=== PATIENT | female | born 1975 | race African-American/Black ===

== ENCOUNTER 2019-12-14 12:52 | Emergency (ER) | payer BC ==
[2019-12-14 13:08] VITALS: BP 142/83; PULSE 74; TEMP 98.4; BMI 30.7
[2019-12-14] MEDS ORDERED: ACETAMINOPHEN 325 MG TABLET (FP) PO ONE (13:47)
[2019-12-14] MEDS ORDERED: LIDOCAINE 5% TOPICAL PATCH TP ONE (13:48)
[2019-12-14] MEDS ORDERED: METOCLOPRAMIDE HCL 10 MG TABLET (FP) PO ONE ×2 (13:49→14:00)
[2019-12-14] MEDS ORDERED: ACETAMINOPHEN 325 MG TABLET (FP) ONE (13:59)
[2019-12-14] MEDS ORDERED: LIDOCAINE 5% TOPICAL PATCH ONE (14:00)
--- NOTE | 2019-12-14 15:36 | PDOC ---
History of Present Illness - General Chief Complaint: Headache Stated Complaint: HEAD INJURY Time Seen by Provider: 12/14/19 13:15 History Source: Patient Exam Limitations: No Limitations Past History - Travel History Traveled outside of the country in the last 30 days: No Close contact w/someone who was outside of country & ill: No - Medical History Allergies/Adverse Reactions: Allergies Allergy/AdvReac Type Severity Reaction Status Date / Time metronidazole [From Flagyl] Allergy Intermediate Hives Verified 12/14/19 13:03 Home Medications: Ambulatory Orders Cyclobenzaprine HCl [Flexeril -] 10 mg PO HS #10 tablet 12/14/19 Ibuprofen 600 mg PO Q6H #30 tablet 12/14/19 Metoclopramide HCl [Reglan -] 10 mg PO TID PRN #21 tablet 12/14/19 COPD: No - Reproductive History Is Patient Now?: No - Psycho-Social/Smoking History Smoking History: Never smoked Have you smoked in the past 12 months: No - Substance Abuse Hx (Audit-C & DAST Scrn) How often the patient has a drink containing alcohol: Never Score: In Men: 4 or > Positive; In Women: 3 or > Positive: 0 Screen Result (Pos requires Nsg. Audit-10AR): Negative In the last yr the pt used illegal drug/Rx for NonMed reason: No Score: Yes response is considered Positive: 0 Screen Result (Positive result requires Nsg. DAST-10): Negative Review of Systems - Review of Systems Able to Perform ROS?: Yes Comments:: 12/14/19 15:22 CONSTITUTIONAL: Absent: fever, chills, diaphoresis, generalized weakness, malaise, loss of appetite HEENT: Absent: rhinorrhea, nasal congestion, throat pain, throat swelling, difficulty swallowing, mouth swelling, ear pain, eye pain, visual Changes CARDIOVASCULAR: Absent: chest pain, loss of consciousness, palpitations, irregular heart rate, peripheral edema RESPIRATORY: Absent: cough, shortness of breath, dyspnea with exertion, orthopnea, wheezing, stridor, hemoptysis GASTROINTESTINAL: Absent: abdominal pain, abdominal distension, nausea, vomiting, diarrhea, constipation, melena, hematochezia GENITOURINARY: Absent: dysuria, frequency, urgency, hesitancy, hematuria, flank pain, genital pain MUSCULOSKELETAL: Present: Neck pain Absent: myalgia, arthralgia, joint swelling SKIN: Absent: rash, itching, pallor HEMATOLOGIC/IMMUNOLOGIC: Absent: easy bleeding, easy bruising, lymphadenopathy, frequent infections ENDOCRINE: Absent: unexplained weight gain, unexplained weight loss, heat intolerance, cold intolerance NEUROLOGIC: Present: headache Absent: focal weakness or paresthesias, dizziness, unsteady gait, seizure, mental status changes, bladder or bowel incontinence PSYCHIATRIC: Absent: anxiety, depression, suicidal or homicidal ideation, hallucinations. Is the patient limited Faroese proficient: No *Physical Exam - Vital Signs Last Vital Signs Temp Pulse Resp BP Pulse Ox 98.4 F 74 18 142/83 100 12/14/19 13:03 12/14/19 13:03 12/14/19 13:03 12/14/19 13:03 12/14/19 13:03 - Physical Exam 12/14/19 15:58 GENERAL: Well developed, well nourished. Awake and alert. No acute distress. HEENT: Normocephalic, atraumatic. PERRLA, EOMI. No conjunctival pallor. Sclera are non- icteric. Moist mucous membranes. NECK: Supple. Full ROM. No lymphadenopathy. Tenderness palpation of the cervical spine C5-C7 with palpable spasm. No midline tenderness CARDIOVASCULAR: Regular rate and rhythm. No murmurs, rubs, or gallops. Distal pulses are 2+ and symmetric. PULMONARY: No evidence of respiratory distress. Lungs clear to auscultation bilaterally. No wheezing, rales or rhonchi. ABDOMINAL: Soft. Non-tender. Non-distended. No rebound or guarding. No organomegaly. MUSCULOSKELETAL Normal range of motion at all joints. No bony deformities or tenderness. No CVA tenderness. EXTREMITIES: No cyanosis. No clubbing. No edema. No calf tenderness. SKIN: Warm and dry. Normal capillary refill. No rashes. No jaundice. NEUROLOGICAL: Alert, awake, appropriate. Cranial nerves 2-12 intact. No deficits to light touch and temperature in face, upper extremities and lower extremities. No motor deficits in the in face, upper extremities and lower extremities. Normoreflexic in the upper and lower extremities. Normal speech. Toes are down-going bilaterally. Gait is normal without ataxia. PSYCHIATRIC: Cooperative. Good eye contact. Appropriate mood and affect. ED Treatment Course - RADIOLOGY Radiology Studies Ordered: Category Date Time Status FACIAL BONES CT W/O CONTRAST [CT] Stat CT Scan 12/14/19 13:[address] WITHOUT CONTRAST [CT] Stat CT Scan 12/14/19 13:41 Taken SPINE-CERVICAL (2-3VIEWS) [RAD] Stat Radiology 12/14/19 13:45 Completed - Medications Given in the ED: ED Medications Discontinued Medications Generic Name Dose Route Start Last Admin Trade Name Bharath PRN Reason Stop Dose Admin Acetaminophen 1,000 mg 12/14/19 13:47 12/14/19 14:08 Tylenol - PO 12/14/19 13:48 1,000 mg ONCE ONE Administration Lidocaine 1 patch 12/14/19 13:48 12/14/19 14:08 Lidoderm Patch - TP 12/14/19 13:49 1 patch ONCE ONE Administration Metoclopramide HCl 10 mg 12/14/19 13:49 12/14/19 14:09 Reglan - PO 12/14/19 13:50 10 mg ONCE ONE Administration Medical Decision Making - Medical Decision Making 12/14/19 15:40 The patient is a 44-year-old female with past medical history of TBI, presents to the ER today with headache and neck pain for 1 week. She states that she was playing with her childress retriever when he jumped off the couch into her neck. She states that the pain significant got worse over the past week. She states she feels like her neck is tight admits to causing her headache. She also notes she has some swelling to her lower eye. Denies fevers, chills, meningismal signs, loss of consciousness and dizziness. A/P: Neck pain, headache On exam patient is right-sided paraspinous muscle tenderness of the cervical spine. Neurologically patient is intact. Minimal swelling to the right lower eyelid. Some pain with extraocular movements. Head CT, facial bone CT and neck x-ray ordered No orbital fractures, no acute head trauma, bleed or fracture X-ray of the C-spine shows reversal curvature consistent with spasm We will treat as an outpatient with ibuprofen and Flexeril Will refer back to PCP I discussed the physical exam findings, ancillary test results and final diagnoses with the patient. I answered all of the patient's questions. The patient was satisfied with the care received and felt comfortable with the discharge plan and treatment plan. The Patient agrees to follow up with the primary care physician/specialist within 24-72 hours. Return precautions were given. Discharge - Discharge Information Problems reviewed: Yes Clinical Impression/Diagnosis: Neck muscle spasm Headache Qualifiers: Headache type: unspecified Headache chronicity pattern: acute headache Intractability: not intractable Qualified Code(s): R51.9 - Headache, unspecified Condition: Stable Disposition: HOME - Admission No - Follow up/Referral Referrals: Zak Jha MD [Staff Physician] - - Patient Discharge Instructions Patient Printed Discharge Instructions: DI for Whiplash, DI for Headache Additional Instructions: You were seen for your injuries after getting run into by your dog Your head CT and facial bone CT was normal Your cervical spine x-ray showed a muscle spasm Please take ibuprofen and Flexeril as directed. Do not drink or drive after taking the Flexeril as it may make you drowsy. You may apply warm packs to the area. You may also buy lidocaine patches [id number] to put on the area. Your headache is most likely due to the muscle spasm in your neck. Please follow-up with neurology if her symptoms are not improving. Referrals been provided to you. Return to the ER for worsening headache, numbness and tingling to the upper extremities, loss of consciousness or if you have any changes in her symptoms. - Post Discharge Activity
== END 2019-12-14 16:15 | disposition home or self-care (01) ==
LOC: JER 12:52
DX: M62.838 Other muscle spasm (principal); R51 Headache
CPT/HCPCS: 70450-TC; 70486-TC; 72040-TC; 99285-25